=== PATIENT | male | born 1990 | race Caucasian/White ===

== ENCOUNTER 2024-07-07 04:36 | Emergency (ER) | payer SELFPAY ==
[~2024-07-07] VITALS: Ht 175.3 cm; Wt 75.0 kg
[2024-07-07 04:43] VITALS: BP 136/86; PULSE 120; RESP 16; TEMP 98.7; O2SAT 99
[2024-07-07 05:26] LABS: BASOPHILS % 0.4 % (0.0-2.0); DIFFERENTIAL COMMENT 0; EOSINOPHILS % 1.5 % (0.0-5.0); HEMATOCRIT. 46.8 % (42.0-52.0); HEMOGLOBIN. 16.7 g/dL (14.0-18.0); MEAN CORPUSCULAR HEMOGLOBIN 31.6 pg (28.0-32.0); MEAN CORPUSCULAR HGB CONC 35.6 g/dL (31.0-37.0); MEAN CORPUSCULAR VOLUME 88.7 fL (80.0-94.0); NEUTROPHILS % 70.1 % (40.0-76.0); PLATELET 207 x1000/uL (130-400); RED BLOOD CELL COUNT 5.27 mill/uL (4.7-6.1); RED CELL DISTRIBUTION WIDTH 12.7 % (11.6-14.6); WHITE BLOOD COUNT 5.7 x1000/uL (4.5-11.0)
[2024-07-07 05:36] LABS: CHLORIDE 109 mEq/L (98-107); POTASSIUM 3.5 mEq/L (3.5-5.1); SODIUM 142 mEq/L (136-145)
[2024-07-07 05:37] LABS: CARBON DIOXIDE 23 mEq/L (21-32)
[2024-07-07 05:38] LABS: CALCIUM 8.7 mg/dL (8.7-10.4)
[2024-07-07 05:42] LABS: CREATININE 0.8 mg/dL (0.6-1.3)
[2024-07-07 05:43] LABS: GLUCOSE 118 mg/dL (70-105); UREA NITROGEN BLOOD 7 mg/dL (9-23)
[2024-07-07 05:44] LABS: ACETAMINOPHEN < 2 ug/mL (10-30)
[2024-07-07 05:52] LABS: ETHANOL BLOOD 387 mg/dL (<10)
== END 2024-07-07 08:16 | disposition left against medical advice (07) ==
LOC: ER 04:44
DX: F10.129 Alcohol abuse with intoxication, unspecified (principal); Y90.8 Blood alcohol level of 240 mg/100 ml or more
CPT/HCPCS: 36415; 80048; 80307; 80320; 80329; 85025; 99283; G0480

== ENCOUNTER 2024-07-08 10:30 | Emergency (ER) | payer SELFPAY ==
[~2024-07-08] VITALS: Ht 170.2 cm; Wt 78.0 kg
[2024-07-08 10:33] VITALS: O2SAT 98
[2024-07-08] MEDS: BACITRACIN ZINC OINT UDPKT TOP ONE (11:13)
[2024-07-08] MEDS: IBUPROFEN 600MG TABLET PO ONE (11:13)
[2024-07-08] MEDS: LIDOCAINE HCL/PF 1% 10 MG/ML 5ML VIAL INFIL ONE (11:14)
[2024-07-08] MEDS: TETANUS, DIPHTHERIA, PERTUSSIS VAC/PF 0.5ML (>10YR OLD) IM ONE (11:15)
[2024-07-08 13:37] VITALS: BP 128/64; PULSE 90; RESP 16; TEMP 37.00296; O2SAT 98
== END 2024-07-08 13:33 | disposition home or self-care (01) ==
LOC: ER 10:30
DX: S61.211A Laceration without foreign body of left index finger without damage to nail, initial encounter (principal); W26.9XXA Contact with unspecified sharp object(s), initial encounter; Y93.89 Activity, other specified; Y92.89 Other specified places as the place of occurrence of the external cause; Y99.8 Other external cause status
CPT/HCPCS: 99282; 12001; J3490

== ENCOUNTER 2024-07-21 10:38 | Emergency (ER) | payer SELFPAY ==
[~2024-07-21] VITALS: Ht 167.6 cm; Wt 73.0 kg
[2024-07-21 10:49] VITALS: O2SAT 98
[2024-07-21 11:17] VITALS: BP 130/78; PULSE 74; RESP 16; TEMP 36.83628; O2SAT 98
== END 2024-07-21 11:19 | disposition home or self-care (01) ==
LOC: ER 10:57
DX: S61.211D Laceration without foreign body of left index finger without damage to nail, subsequent encounter (principal); X58.XXXA Exposure to other specified factors, initial encounter
CPT/HCPCS: 99281

== ENCOUNTER 2024-09-09 00:54 | Emergency (ER) | payer SELFPAY ==
[~2024-09-09] VITALS: Ht 162.6 cm; Wt 73.0 kg
[2024-09-09 01:28] VITALS: O2SAT 99
[2024-09-09] MEDS: LIDOCAINE HCL/PF 1% 10 MG/ML 5ML VIAL INFIL ONE (02:00)
[2024-09-09] MEDS: BACITRACIN ZINC OINT UDPKT TOP ONE (02:00)
[2024-09-09] MEDS: LIDOCAINE HCL/PF 1% 10 MG/ML 5ML VIAL INFIL NR (04:15)
[2024-09-09] MEDS: BACITRACIN ZINC OINT UDPKT TOP NR (04:15)
[2024-09-09 05:26] VITALS: BP 138/79; PULSE 68; RESP 19; TEMP 36.55848; O2SAT 98
== END 2024-09-09 05:22 | disposition home or self-care (01) ==
LOC: ER 01:37
DX: S61.011A Laceration without foreign body of right thumb without damage to nail, initial encounter (principal); W26.0XXA Contact with knife, initial encounter; Y93.89 Activity, other specified; Y92.89 Other specified places as the place of occurrence of the external cause; Y99.8 Other external cause status
CPT/HCPCS: 12002; 99282; J3490; Z7610

== ENCOUNTER 2024-09-19 07:54 | Emergency (ER) | payer SELFPAY ==
[~2024-09-19] VITALS: Ht 172.7 cm; Wt 66.0 kg
[2024-09-19 08:04] VITALS: BP 130/83; PULSE 68; RESP 18; TEMP 98.2; O2SAT 97
== END 2024-09-19 09:11 | disposition home or self-care (01) ==
LOC: ER 07:54
DX: S61.012D Laceration without foreign body of left thumb without damage to nail, subsequent encounter (principal); X58.XXXD Exposure to other specified factors, subsequent encounter
CPT/HCPCS: 99281